=== PATIENT | male | born 2000 | race Caucasian/White ===

== ENCOUNTER 2023-01-09 13:13 | Emergency (ER) | payer OTHER ==
[2023-01-09] MEDS ORDERED: IPRATROPIUM/ALBUTEROL 3 ML NEB INH STA (13:20)
--- NOTE | 2023-01-09 13:24 | ED Physician Documentation ---
History of Present Illness - Stated complaint Stated Complaint: COUGH - Additonal information Additional information: 22-year-old male is brought to the emergency department for evaluation of cough and wheeze. Reported that for the last 2 nights he is woken up in the middle of the night feeling like he cannot breathe and has been wheezy with a mild cough. He began having some runny nose and congestion this morning. No fevers. Patient denies any vaping or tobacco use history. No history of asthma. He did recently returned from [place] via airplane where he was there for 4 days for Thanksgiving. He has a productive cough but no kathy hemoptysis. No unilateral leg swelling or calf pain. No history of immobilization, surgery. No previous history of cancer or DVT. Seen at [facility] where they were concerned that he appeared ill. Reportedly had saturations at 94% on room air while at the clinic. On presentation in the emergency department he is alert and well-appearing. Room air saturations 99%. No acute tachypnea or distress. Heart rate was 99. Review of Systems Constitutional: denies: Fever, Myalgias Nose: reports: Rhinorrhea / runny nose, Congestion Throat: reports: Reviewed and negative Respiratory: reports: Dyspnea, Cough, Wheezing. denies: Hemoptysis GI: reports: Reviewed and negative : reports: Reviewed and negative Skin: reports: Reviewed and negative PD PAST MEDICAL HISTORY - Present Medications Home Medications: Ambulatory Orders Medication Instructions Recorded Confirmed Albuterol Sulf [Ventolin Hfa 1 - 2 puffs INH Q4HR PRN #1 each 01/09/23 Inhaler] - Allergies Allergies/Adverse Reactions: Allergies Allergy/AdvReac Type Severity Reaction Status Date / Time No Known Drug Allergies Allergy Verified 01/09/23 13:26 PD ED PE NORMAL - General General: Alert and oriented X 3, No acute distress, Well developed/nourished - Neck Neck: Supple, no meningeal sign, No adenopathy - Cardiac Cardiac: RRR, No murmur, Strong equal pulses, Other (No unilateral leg swelling or posterior calf pain tenderness.) - Respiratory Respiratory: No respiratory distress. No: Clear bilaterally (Faint generalized expiratory wheeze. 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 Eye Opening: Spontaneous Motor: Obeys Commands Verbal: Oriented GCS Score: 15 Results - Vitals Vitals: Vital Signs - 24 hr 01/09/23 01/09/23 13:14 13:37 Temperature 37 C Heart Rate 101 H 108 H Respiratory 18 16 Rate Blood Pressure 141/100 H O2 Saturation 98 Oxygen O2 Source Room air - Labs Labs: Laboratory Tests 01/09/23 13:32 D-Dimer 254.7 - Rads (name of study) cxr Relevant Findings:: Final report received (no acute cardiopulmonary process) PD Medical Decision Making - ED course Complexity details: reviewed results, re-evaluated patient, considered dif ferential, d/w patient ED course: 22-year-old male presents emergency department for evaluation of 2 days cough and wheeze. He often feels out of breath. Wakes up in the middle of the night with cough and unable to catch his breath. Seen at [facility]. The patient had reported hemoptysis to that provider and they were concerned about the possibility of pulmonary embolism as he had recently traveled back to [place] where he had been in [place] for 4 days visiting family. Presentation to the emergency department he is alert and well-appearing. Room air saturations are 99%. Pulmonary auscultation revealed some very faint scattered expiratory wheeze. He was in no respiratory distress. The patient denied bloody sputum for me. However given the preceding provider's concern for a pulmonary embolism and recent air travel we did perform a D-dimer which was negative, though by wells criteria thought to be exceedingly low risk for PE.. Clinically the patient has no evidence of DVT on exam. A chest x-ray showed no findings for focal consolidation/pneumonia pneumothorax or pleural effusion. Respiratory PCR panel is pending. While here in the emergency department the patient was given a DuoNeb treatment and on reevaluation is free of wheeze and feeling improved. Clinically I suspect the patient has a viral upper respiratory infection causing his symptoms. Patient is advised to follow the PCR results up on the line. He will be dispensed with prescription for albuterol to be used as needed over the course of this URI should he experience further cough and wheeze. The usual emergent return precautions were discussed for worsening symptoms. Departure - Departure Disposition: 01 Home, Self Care Clinical Impression: Shortness of breath, Wheeze Cough Qualifiers: Cough type: acute Qualified Code(s): R05.1 - Acute cough Condition: Stable Record reviewed to determine appropriate education?: Yes Instructions: ED Viral Syndrome Prescriptions: Albuterol Sulf [Ventolin Hfa Inhaler] 1 - 2 puffs INH Q4HR PRN #1 each PRN Reason: Shortness Of Air/Wheezing Comments: Med you are seen today in the emergency department because for the last few days you have had some cough, wheezing and feeling short of air especially at night. Chest x-ray is normal. It did not show any findings of pneumonia, pneumothorax or pleural effusion. We did obtain a lab called a D-dimer which can help us evaluate your risk for determining if you are making blood clots abnormally. Your D-dimer is not elevated. Clinically you have no signs or symptoms of a pulmonary embolism or a deep vein thrombosis. A viral respiratory panel is pending. I encourage you to follow these results up online in the next few hours. We will notify you only if you are COVID-19 positive. I encourage you to fill the prescription for the albuterol and use it with the spacer provided 3-4 times a day for the next several days. If you wake up in the middle the night and have some cough or wheeze you are encouraged to use that then as well Return to the ER if you have worsening symptoms, your cough fails to improve over the next week, you have uncontrolled nausea and vomiting, any fainting episodes or severe chest pain.
--- NOTE | 2023-01-09 13:48 | XRAY Report ---
PROCEDURE: Chest 1 View X-Ray INDICATIONS: chest pain TECHNIQUE: One view of the chest was acquired. COMPARISON: None. FINDINGS: Surgical changes and devices: None. Lungs and pleura: No pleural effusions or pneumothorax. Lungs are clear. Mediastinum: Mediastinal contours appear normal. Heart size is normal. Bones and chest wall: No suspicious bony lesions. Overlying soft tissues appear unremarkable. IMPRESSION: No acute cardiopulmonary process. Reviewed by: Derek Silverio MD on 01/09/2023 1:47 PM [facility] Approved by: Derek Silverio MD on 01/09/2023 1:47 PM [facility] Station ID: [id number]
[2023-01-09 14:57] VITALS: BP 127/88; O2SAT 100
[2023-01-09 15:16] LABS: B. PARAPERTUSSIS- RESP PCR PAN NOT DETECTED; B. PERTUSSIS- RESP PCR PANEL NOT DETECTED; C. PNEUMONIAE- RESP PCR PANEL NOT DETECTED; CORONAVIRUS 229E-RESP PCR NOT DETECTED; CORONAVIRUS HKU1-RESP PCR NOT DETECTED; CORONAVIRUS NL63-RESP PCR NOT DETECTED; CORONAVIRUS OC43-RESP PCR NOT DETECTED; HUMAN METAPNEUMOVIRUS NOT DETECTED; INFLUENZA A- RESP PCR PANEL NOT DETECTED; INFLUENZA B - RESP PCR PANEL NOT DETECTED; M. PNEUMONIAE- RESP PCR PANEL NOT DETECTED; PARAINFLUENZA VIRUS 1 NOT DETECTED; PARAINFLUENZA VIRUS 2 NOT DETECTED; PARAINFLUENZA VIRUS 3 NOT DETECTED; PARAINFLUENZA VIRUS 4 NOT DETECTED; RHINOVIRUS/ENTEROVIRUS NOT DETECTED; RSV- RESP PCR PANEL NOT DETECTED; SARS-CoV-2 -RESP PCR PANEL NOT DETECTED
== END 2023-01-09 14:50 | disposition home or self-care (01) ==
LOC: ED 13:13
DX: R06.02 Shortness of breath (principal); R05.1 Acute cough
CPT/HCPCS: 36415; 85379; 87633; 94640; 94664; 99284

== ENCOUNTER 2023-04-11 21:21 | Emergency (ER) | payer OTHER ==
--- NOTE | 2023-04-11 21:45 | ED Physician Documentation ---
PD HPI DYSPNEA - Stated complaint Stated Complaint: ASTHMA ATTACK - History obtained from History obtained from: Patient - Additional information Additional information: 23-year-old gentleman who may or may not have asthma. He says he has been told he was asthmatic before but then he had pulmonary function testing maybe that was negative. He started wheezing and having shortness of breath today at 4 while exercising. He was in his usual state of health prior to that. No chest pain. He has minimal dry cough. PD PAST MEDICAL HISTORY - Past Surgical History Past Surgical History: No - Present Medications Home Medications: Ambulatory Orders Medication Instructions Recorded Confirmed Albuterol Sulf [Ventolin Hfa 1 - 2 puffs INH Q4HR PRN #1 each 01/09/23 04/11/23 Inhaler] Albuterol Sulf [Ventolin Hfa 1 - 2 puffs INH Q4HR PRN #1 each 04/11/23 Inhaler] Cetirizine [ZyrTEC] 10 mg PO ONCE 04/11/23 04/11/23 predniSONE [Deltasone] 60 mg PO DAILY 5 Days #15 tablet 04/11/23 - Allergies Allergies/Adverse Reactions: Allergies Allergy/AdvReac Type Severity Reaction Status Date / Time No Known Drug Allergies Allergy Verified 04/11/23 21:46 - Social History Does the pt smoke?: No Smoking Status: Never smoker Does the pt drink ETOH?: Yes Does the pt have substance abuse?: No - Immunizations Immunizations are current?: Yes - POLST Patient has POLST: No PD ED PE NORMAL - Vitals Vital signs reviewed: Yes - General General: Alert and oriented X 3, No acute distress - Neck Neck: Supple, no meningeal sign, No bony TTP - Cardiac Cardiac: RRR, No murmur - Respiratory Respiratory: Other (Audible wheezing at the bedside, and he has inspiratory and expiratory wheezing on auscultation with diminished breath sounds but no focal findings. He is nonlabored.) - Extremities Extremities: No edema, No calf tenderness / cord - Neuro Neuro: Alert and oriented X 3, Normal speech Results - Vitals Vitals: Vital Signs - 24 hr 04/11/23 04/11/23 04/11/23 21:41 21:45 22:00 Temperature 36.4 C L Heart Rate 109 H 106 H 104 H Respiratory 22 15 20 Rate Blood Pressure 113/80 O2 Saturation 93 92 Oxygen O2 Source Room air PD Medical Decision Making - ED course ED course: 23-year-old gentleman who may or may not have asthma but he is certainly wheezing after exercising tonight. After the administration of albuterol and nebulizer and some prednisone he is feeling much better and lungs are clear. Departure - Departure Disposition: 01 Home, Self Care Clinical Impression: Reactive airway disease Qualifiers: Asthma severity: unspecified severity Asthma persistence: unspecified Asthma complication type: with acute exacerbation Qualified Code(s): J45.901 - Unspecified asthma with (acute) exacerbation Condition: Good Record reviewed to determine appropriate education?: Yes Instructions: ED Reactive Airway Disease Prescriptions: Albuterol Sulf [Ventolin Hfa Inhaler] 1 - 2 puffs INH Q4HR PRN #1 each PRN Reason: Shortness Of Air/Wheezing predniSONE [Deltasone] 60 mg PO DAILY 5 Days #15 tablet Comments: It is unclear whether or not you actually have asthma but you are certainly wheezing tonight after exercising. I am refilling your inhaler and also giving steroids for the next few days. Call your doctor to arrange a follow-up appointment, make the next available appointment. In the interim, return anytime if worse or if new symptoms develop.
[2023-04-11 21:51] VITALS: BP 113/80
[2023-04-11] MEDS: ALBUTEROL NEB 2.5 MG/3 ML INH STA (21:59)
[2023-04-11] MEDS: predniSONE 20 MG TABLET PO STA (21:59)
[2023-04-11 22:01] VITALS: O2SAT 92
== END 2023-04-11 22:34 | disposition home or self-care (01) ==
LOC: ED 21:21
DX: J45.901 Unspecified asthma with (acute) exacerbation (principal)
CPT/HCPCS: 94640; 94664; 99283; 99284; J7512